=== PATIENT | male | born 1990 | race Hispanic/Latino ===

== ENCOUNTER → 2025-01-05 | Day surgery (SDC) | payer OTHER ==
[2024-12-31 10:39] LABS: BASOPHILS % 0.5 % (0.0-1.0); EOSINOPHILS # (AUTO) 0.2 (0.0-0.4); EOSINOPHILS % 2.6 % (0.0-6.0); HEMATOCRIT 42.9 % (38.2-49.6); HEMOGLOBIN 14.1 g/dL (14.0-18.0); LYMPHOCYTES % 47.1 % (18.0-39.1); MEAN CORPUSCULAR HEMOGLOBIN 28.3 pg (28-32); MEAN CORPUSCULAR HGB CONC 32.9 g/dL (31-35); MONOCYTES # (AUTO) 0.5 (0.2-0.8); NEUTROPHILS # (AUTO) 3.7 (2.1-6.9); NEUTROPHILS % 43.6 % (38.7-80.0); PLATELET COUNT 439 x10e3/uL (140-360); RED BLOOD COUNT 4.99 x10e6/uL (4.3-5.7); RED CELL DISTRIBUTION WIDTH 12.7 % (11.7-14.4); WHITE BLOOD COUNT 8.38 x10e3/uL (4.8-10.8)
[2024-12-31 11:03] LABS: CALCIUM 9.1 mg/dL (8.4-10.2); CREATININE, SERUM 0.83 mg/dL (0.72-1.25)
[~2025-01-05] MED LIST: ACETAMINOPHEN 1000 MG/100 ML 100 ML IV ONE; CEPHALEXIN500 MG PO; DEXAMETHASONE SOD PHOS INJ 4 MG/ML SDV ONE; FENTANYL CITRATE/PF 100MCG/2 ML INJ ONE; LIDOCAINE HCL 2% LOCAL INJ 5 ML SDV VIAL INJ ONE; METOCLOPRAMIDE HCL 10 MG/2ML VIAL ONE; MIDAZOLAM HCL 2 MG/2 ML VIAL ONE; ONDANSETRON HCL INJ 2MG/ML 2ML 2 MG/ML VIAL ONE; PROPOFOL IV EMULSION 10 MG/ML 20 ML VIAL ONE; ROCURONIUM BROMIDE 0 ML IV ONE; ROCURONIUM BROMIDE 1 ML IV ONE; SEVOFLURANE INHAL SOLN 250 ML PEN BTL ONE; SUGAMMADEX SODIUM 200 MG/2 ML VIAL IV ONE
[2025-01-05] MEDS: LACTATED RINGER'S 1,000 ML ONE (08:01)
[2025-01-05 11:45] VITALS: TEMP 97.6
[2025-01-05] MEDS: HYDROCODONE/APAP 7.5MG-325MG 1 EA TAB ONE (12:30)
[2025-01-05 13:10] VITALS: BP 143/87; PULSE 81; RESP 16; O2SAT 97
== END | disposition home or self-care (01) ==
LOC: OR 07:14
PROVIDERS: ATTEND Surgery
DX: K42.0 Umbilical hernia with obstruction, without gangrene (principal); Z01.812 Encounter for preprocedural laboratory examination
CPT/HCPCS: 36415; 49594; 80048; 85025; 88302; C1781; J0131; J1100; J2003; J2250; J2405; J2704; J2765; J3010; J7121

== ENCOUNTER 2025-01-15 09:26 | Emergency (ER) | payer OTHER ==
[~2025-01-15] VITALS: Ht 190.5 cm; Wt 140.6 kg
[2025-01-15 09:33] VITALS: TEMP 97.9
[2025-01-15] MEDS: ONDANSETRON HCL INJ 2MG/ML 2ML 2 MG/ML VIAL IV STA (09:53)
[2025-01-15] MEDS: SODIUM CHLORIDE 0.9% 1000ML 1,000 ML IV STA (09:53)
[2025-01-15] MEDS: HYDROMORPHONE 1MG/1ML INJ IV STA (09:54)
[2025-01-15 10:08] LABS: BASOPHILS % 0.4 % (0.0-1.0); EOSINOPHILS % 3.4 % (0.0-6.0); LYMPHOCYTES % 28.0 % (18.0-39.1); MONOCYTES % 7.6 % (4.4-11.3); NEUTROPHILS % 60.4 % (38.7-80.0); RED CELL DISTRIBUTION WIDTH 12.6 % (11.7-14.4)
[2025-01-15] MEDS ORDERED: IOPAMIDOL 370 MG/ML 100 ML INFUS..BTL INJ ONE (10:14)
[2025-01-15 10:17] LABS: INR 0.94
[2025-01-15 10:20] LABS: EST GLOMERULAR FILTRATION RATE 119.0 ML/MIN (>=60)
[2025-01-15] MEDS ORDERED: CEPHALEXIN500 MG PO (12:13)
[2025-01-15 13:15] VITALS: PULSE 80; RESP 16; O2SAT 98
== END 2025-01-15 13:15 | disposition home or self-care (01) ==
LOC: ER 09:29
DX: K91.873 Postprocedural seroma of a digestive system organ or structure following other procedure (principal)
CPT/HCPCS: 36415; 74177; 80053; 85025; 85610; 99284; J1171; J2405; J7030; Q9967